=== PATIENT | female | born 1960 | race Caucasian/White ===

== ENCOUNTER 2024-09-06 13:40 | Emergency (ER) | payer MEDICARE ==
[2024-09-06] MEDS ORDERED: Sodium Chloride 0.9% 100 ML ONE (16:35)
[2024-09-06] MEDS ORDERED: CEFAZOLIN 2 GM VIAL ONE (16:35)
[2024-09-06 16:49] LABS: #Basophils 0.09 10x3/uL (0.0-0.2); %Basophils 0.9 % (0.0-1.0); %Eosinophils 2.9 % (0.0-10.0); %Lymphocytes 12.4 % (21.0-51.0); %Monocytes 6.6 % (0.0-10.0); Hematocrit 35.5 % (36.0-47.0); Hemoglobin 11.9 g/dL (12.0-16.0); Mean Corpuscular HGB CONC 33.5 g/dL (32.0-36.0); Mean Corpuscular Hemoglobin 30.9 pg (27.0-31.0); Mean Corpuscular Volume 92.2 fL (78.0-98.0); Mean Platelet Volume 9.6 fL (7.4-10.4); Platelet Count 301 10x3/uL (130-400); RBC Distribution Width 13.2 % (11.5-14.5); Red Blood Cell (RBC) Count 3.85 mill/uL (4.20-5.40)
[2024-09-06 17:12] LABS: Troponin I Less than 0.010 ng/mL (< 0.028)
[2024-09-06 19:04] LABS: Albumin 3.8 g/dL (3.4-4.8); Chloride 102 mmol/L (98-107); Potassium 4.4 mmol/L (3.5-5.1); Sodium 139 mmol/L (136-145)
[2024-09-06 19:05] LABS: Calcium 9.2 mg/dL (7.8-10.44); Glucose 99 mg/dL (80-115)
[2024-09-06 19:06] LABS: Globulin 4.2 g/dL (2.4-3.5)
[2024-09-06 19:07] LABS: Anion Gap 17 mmol/L (10-20); Carbon Dioxide 24 mmol/L (23-31)
[2024-09-06 19:08] LABS: Alkaline Phosphatase 74 U/L (40-110); Bilirubin, Total 0.7 mg/dL (0.2-1.2)
[2024-09-06 19:09] LABS: BUN (Urea Nitrogen) 12 mg/dL (9.8-20.1); Calc. Creatinine Clearance 0 mL/min (70-130); Estimated GFR 61
[2024-09-06 19:11] LABS: ALT (SGPT) 14 U/L (8-55); AST (SGOT) 16 U/L (5-34)
== END 2024-09-06 20:10 | disposition home or self-care (01) ==
LOC: ERS 13:40
DX: L03.115 Cellulitis of right lower limb (principal); I89.0 Lymphedema, not elsewhere classified; I10 Essential (primary) hypertension
CPT/HCPCS: 36415; 80053; 83880; 84484; 85025; 85379; 93005; 93970

== ENCOUNTER 2024-09-07 10:51 | Inpatient (IN) | payer MEDICARE ==
[2024-09-07] MEDS ORDERED: Sodium Chloride 0.9% 100 ML ONE (12:20)
[2024-09-07] MEDS ORDERED: Cefepime 2 GM VIAL ONE (12:20)
[2024-09-07 12:26] LABS: #Basophils 0.12 10x3/uL (0.0-0.2); %Basophils 1.3 % (0.0-1.0); %Eosinophils 3.9 % (0.0-10.0); %Lymphocytes 12.9 % (21.0-51.0); %Monocytes 6.9 % (0.0-10.0); %Neutrophils 74.7 % (42.0-75.0); Hematocrit 36.6 % (36.0-47.0); Hemoglobin 11.8 g/dL (12.0-16.0); Mean Corpuscular HGB CONC 32.2 g/dL (32.0-36.0); Mean Corpuscular Hemoglobin 30.9 pg (27.0-31.0); Mean Corpuscular Volume 95.8 fL (78.0-98.0); Mean Platelet Volume 9.1 fL (7.4-10.4); Platelet Count 313 10x3/uL (130-400); Red Blood Cell (RBC) Count 3.82 mill/uL (4.20-5.40)
[2024-09-07 12:45] LABS: ALT (SGPT) 14 U/L (8-55); AST (SGOT) 18 U/L (5-34); Albumin 3.9 g/dL (3.4-4.8); Alkaline Phosphatase 73 U/L (40-110); Anion Gap 15 mmol/L (10-20); BUN (Urea Nitrogen) 16 mg/dL (9.8-20.1); Bilirubin, Total 0.5 mg/dL (0.2-1.2); Calc. Creatinine Clearance 0 mL/min (70-130); Carbon Dioxide 23 mmol/L (23-31); Chloride 103 mmol/L (98-107); Estimated GFR 62; Globulin 4.4 g/dL (2.4-3.5); Glucose 111 mg/dL (80-115); Potassium 4.2 mmol/L (3.5-5.1); Protein, Total 8.3 g/dL (5.8-8.1); Sodium 137 mmol/L (136-145)
[2024-09-07] MEDS ORDERED: Ondansetron ODT 4 MG TAB PO PRN (13:45)
[2024-09-07] MEDS ORDERED: Ondansetron PF 4 MG/2 ML Vial IVP PRN (13:45)
[2024-09-07] MEDS ORDERED: Acetaminophen 325 MG TAB PO PRN (13:50)
[2024-09-07] MEDS ORDERED: Senokot S 8.6-50 MG TAB PO PRN (13:50)
[2024-09-07] MEDS: Vancomycin (BATCH) 2 GM in Premix 1 BAG IVPB SCH (15:49)
[2024-09-07 15:50] VITALS: BMI 64.3
[2024-09-07] MEDS ORDERED: Vancomycin 1 GM in Premix 1 BAG IVPB SCH (21:00)
[2024-09-07] MEDS: Famotidine 20 MG TAB PO SCH (22:41)
[2024-09-08] MEDS: Vancomycin 1 GM in Premix 1 BAG IVPB SCH (00:06)
[2024-09-08] MEDS: Cefepime 2 GM in Sodium Chloride 0.9% 100 ML IVPB SCH (01:20)
[2024-09-08 06:28] LABS: #Basophils 0.09 10x3/uL (0.0-0.2); %Basophils 1.2 % (0.0-1.0); %Eosinophils 5.7 % (0.0-10.0); %Lymphocytes 20.2 % (21.0-51.0); %Neutrophils 63.5 % (42.0-75.0); Hematocrit 33.2 % (36.0-47.0); Hemoglobin 10.3 g/dL (12.0-16.0); Mean Corpuscular Hemoglobin 30.7 pg (27.0-31.0); Mean Corpuscular Volume 99.1 fL (78.0-98.0); Mean Platelet Volume 10.3 fL (7.4-10.4); Platelet Count 208 10x3/uL (130-400); RBC Distribution Width 13.1 % (11.5-14.5); Red Blood Cell (RBC) Count 3.35 mill/uL (4.20-5.40)
[2024-09-08 06:44] LABS: Vancomycin, Random 19.5 ug/mL (See Comment)
[2024-09-08] MEDS: Enoxaparin 40 MG (0.4 mL) SYRINGE SC SCH (10:30)
[2024-09-08] MEDS ORDERED: Iopamidol-370 76% 500 ML MDV (1 ML CHARGE) ONE (10:39)
[2024-09-08 15:14] LABS: Hemoglobin A1c 5.5 % (4.0-6.0)
[2024-09-08 18:33] LABS: Free T4 (Free Thyroxine) Less than 0.42 ng/dL (0.70-1.48)
[2024-09-08] MEDS: Hydrocortisone 1% Cream 30 GM TUBE TOP SCH (21:10)
[2024-09-09] MEDS: Levothyroxine Sodium 50 MCG TAB PO SCH (05:38)
[2024-09-09 06:11] LABS: Anion Gap 11 mmol/L (10-20); BUN (Urea Nitrogen) 15 mg/dL (9.8-20.1); Calc. Creatinine Clearance 186 mL/min (70-130); Calcium 8.4 mg/dL (7.8-10.44); Carbon Dioxide 24 mmol/L (23-31); Chloride 105 mmol/L (98-107); Estimated GFR 81; Glucose 101 mg/dL (80-115); Magnesium 2.1 mg/dL (1.6-2.6); Potassium 3.9 mmol/L (3.5-5.1); Sodium 136 mmol/L (136-145)
[2024-09-09 07:01] LABS: #Basophils 0.09 10x3/uL (0.0-0.2); %Basophils 1.2 % (0.0-1.0); %Eosinophils 6.6 % (0.0-10.0); %Lymphocytes 21.1 % (21.0-51.0); %Monocytes 8.3 % (0.0-10.0); %Neutrophils 62.5 % (42.0-75.0); Hemoglobin 10.3 g/dL (12.0-16.0); Mean Corpuscular HGB CONC 32.2 g/dL (32.0-36.0); Mean Corpuscular Hemoglobin 30.9 pg (27.0-31.0); Mean Corpuscular Volume 96.1 fL (78.0-98.0); Mean Platelet Volume 8.9 fL (7.4-10.4); Platelet Count 255 10x3/uL (130-400); RBC Distribution Width 13.2 % (11.5-14.5); Red Blood Cell (RBC) Count 3.33 mill/uL (4.20-5.40)
[2024-09-09 08:39] VITALS: BMI 64.3
[2024-09-09] MEDS: CEFAZOLIN 2 GM in Sodium Chloride 0.9% 100 ML IVPB SCH (13:06)
[2024-09-09] MEDS: Loperamide HCl 2 MG CAP PO PRN (21:15)
[2024-09-10] MEDS: diphenhydrAMINE 25 MG CAP PO SCH (01:02)
[2024-09-10 05:53] LABS: #Basophils 0.11 10x3/uL (0.0-0.2); %Basophils 1.5 % (0.0-1.0); %Eosinophils 7.7 % (0.0-10.0); %Lymphocytes 23.2 % (21.0-51.0); %Monocytes 8.2 % (0.0-10.0); %Neutrophils 59.1 % (42.0-75.0); Hematocrit 32.1 % (36.0-47.0); Hemoglobin 10.5 g/dL (12.0-16.0); Mean Corpuscular HGB CONC 32.7 g/dL (32.0-36.0); Mean Corpuscular Hemoglobin 31.1 pg (27.0-31.0); Mean Platelet Volume 8.8 fL (7.4-10.4); Platelet Count 268 10x3/uL (130-400); RBC Distribution Width 12.9 % (11.5-14.5); Red Blood Cell (RBC) Count 3.38 mill/uL (4.20-5.40)
[2024-09-10 06:17] LABS: Anion Gap 12 mmol/L (10-20); BUN (Urea Nitrogen) 13 mg/dL (9.8-20.1); Calc. Creatinine Clearance 173 mL/min (70-130); Calcium 8.3 mg/dL (7.8-10.44); Carbon Dioxide 25 mmol/L (23-31); Chloride 105 mmol/L (98-107); Estimated GFR 74; Glucose 103 mg/dL (80-115); Magnesium 2.1 mg/dL (1.6-2.6); Potassium 3.9 mmol/L (3.5-5.1); Sodium 138 mmol/L (136-145)
[2024-09-10] MEDS: FLU (Fluad Triv) TS24-25 (65UP)/MF59C/PF 45 MCG/0.5 ML Syringe IM ONE (14:13)
[2024-09-11] MEDS: Levothyroxine Sodium 100 MCG TAB PO SCH (06:20)
[2024-09-11] MEDS: Cephalexin 250 MG CAP PO SCH (12:43)
[2024-09-12] MEDS ORDERED: diphenhydrAMINE 30 GM TUBE TOP PRN (08:24)
[2024-09-12 11:25] VITALS: BP 126/82; TEMP 98.6
== END 2024-09-12 11:37 | disposition home or self-care (01) | DRG 603 ==
LOC: ERS 10:51 → T4-A 13:32 → OBSVTOIN 09-08 09:24
PROVIDERS: ADMIT Hospitalist; ATTEND Hospitalist
DX: L03.115 Cellulitis of right lower limb (principal); Z68.44 Body mass index [BMI] 60.0-69.9, adult; I89.0 Lymphedema, not elsewhere classified; E66.01 Morbid (severe) obesity due to excess calories; I10 Essential (primary) hypertension; G35 Multiple sclerosis; Z90.710 Acquired absence of both cervix and uterus; Z91.040 Latex allergy status; Z88.0 Allergy status to penicillin; L30.9 Dermatitis, unspecified
CPT/HCPCS: 36415; 80048; 80053; 80202; 82565; 83036; 83735; 83880; 84439; 84443; 84481; 84484; 85025; 85379; 90653; 93005; 93970; 96365; 96375; 96376; 97139; G0378; J0692; J1650; J3370; J3370-JW; Q9967